=== PATIENT | female | born 1995 | race Caucasian/White ===

== ENCOUNTER 2023-01-19 13:33 | Outpatient (REF) | payer OTHER, SELFPAY ==
--- NOTE | 2023-01-19 09:00 | PAPFT_PTH ---
PAT[facility]: Becki Goldstein [id number] AGE/SX: 27/F ROOM: RE01/19/[address]: Merle Mclean : 1995 BED: DIS: 01/19/2023 SPEC #: [id number] RECD: 01/19/23 13:44 STATUS: IDA REWally #: [id number] PRABHU: 01/19/23 09:[address]: Merle Mclean DEPT: [facility] Cytology RECD BY: Radhika Alonso Tissues: 1 - CX/ENDOCX FOR PAP SMEARS Procedures: PAP THIN PREP/[facility] Screening Comments: [id number] (CHLAMYDIA/GC)
[2023-01-23 15:12] LABS: Chlamydia Result Negative (Negative); GC Result Negative (Negative)
== END 2023-01-19 13:34 | disposition home or self-care (01) ==
LOC: NCHCN 13:33
PROVIDERS: Visit Provider Nurse Practitioner Family
DX: Z11.3 Encounter for screening for infections with a predominantly sexual mode of transmission (principal); Z12.4 Encounter for screening for malignant neoplasm of cervix
CPT/HCPCS: 87491; 87591; 88142